=== PATIENT | female | born 1955 | race Caucasian/White ===

== ENCOUNTER 2022-12-16 20:29 | Emergency (ER) | payer MEDICARE, SELFPAY ==
[2022-12-16 20:45] VITALS: BP 142/66; PULSE 76; RESP 18; TEMP 36.7; O2SAT 96; BMI 29.1
--- NOTE | 2022-12-16 20:47 | ED.GENADULT ---
HPI - General Adult General Chief complaint: Fever Stated complaint: sick for a week, was on cruise Time Seen by Provider: 12/16/22 20:47 Source: patient Mode of arrival: Ambulatory Limitations: no limitations History of Present Illness HPI narrative: Patient is a 67-year-old female who is here for evaluation of approximately 1 week of feeling very poorly and also having multiple episodes of diarrhea. This all started shortly after she went on a cruise about a week ago. She was seen by a doctor on the ship. Was given antinausea medication and also antispasm medication. She does describe some generalized abdominal discomfort. She did have a fever but that was several days ago which has resolved. She denies any urinary symptoms. No recent antibiotics. No blood in her stool. Related Data Allergies Allergy/AdvReac Type Severity Reaction Status Date / Time meperidine [From Demerol] Allergy Unknown Verified 12/16/22 20:48 tetracycline AdvReac Intermediate Vomiting Verified 12/16/22 20:48 Review of Systems Constitutional Constitutional: Reports system reviewed and no additional complaints, except as documented Cardiovascular Cardiovascular: Reports system reviewed and no additional complaints, except as documented Respiratory Respiratory: Reports system reviewed and no additional complaints, except as documented Gastrointestinal Gastrointestinal: Reports system reviewed and no additional complaints, except as documented Genitourinary Genitourinary: Reports system reviewed and no additional complaints, except as documented Integumentary/Breasts Skin/Breast: Reports system reviewed and no additional complaints, except as documented Hematologic/Lymphatic On Anticoagulants: No Patient History Social History Smoking Status: Never smoker Exam Initial Vital Signs Initial Vital Signs: Vital Signs Temperature 98.1 F 12/16/22 20:45 Pulse Rate 76 12/16/22 20:45 Respiratory Rate 18 12/16/22 20:45 Blood Pressure 142/66 H 12/16/22 20:45 Pulse Oximetry 96 12/16/22 20:45 Oxygen Delivery Method Room Air 12/16/22 20:45 HENMT Head: normal to inspection Resp Effort & Inspection: normal respiratory effort Auscultation: clear to auscultation bilaterally Cardio Rate: regular rate Rhythm: regular rhythm GI Inspection: normal to inspection and non-distended Palpation: soft and No tender Skin General: no rashes or lesions noted Neuro General: patient alert, patient awake and moves all extremities Extrem General: normal to inspection and capillary refill normal Course Orders Ordered: ED Orders 12/16/22 19:00 Complete Blood Count AUTO DIFF Stat Comprehensive Metabolic Panel Stat Lipase Stat 12/16/22 20:42 Covid-19 + FLU A/B + RSV - PCR Stat Discontinued Medications Sodium Chloride (Normal Saline 0.9%) 1,000 mls @ 1,000 mls/hr IV BOLUS ONE Stop: 12/16/22 21:47 Last Infusion: 12/16/22 22:03 Dose: 0 mls/hr Documented By: Admin: 12/16/22 21:03 Dose: 1,000 mls/hr Documented By: AMU Vital Signs Vital signs: Vital Signs - 8 hr 12/16/22 20:45 Temperature 98.1 F Pulse Rate 76 Respiratory Rate 18 Blood Pressure 142/66 H Pulse Oximetry 96 Oxygen Delivery Method Room Air Medical Decision Making Lab Data 12/16/22 19:00 12/16/22 19:00 Labs: Lab Results 12/16/22 12/16/22 12/16/22 Range/Units 19:00 19:00 20:42 WBC 5.4 (4.5-11.0) X10^3/uL RBC 3.93 L (4.0-5.2) X10^6/uL Hgb 12.0 (12.0-16.0) g/dL Hct 34.1 L (36-46) % MCV 86.7 (80-100) fL MCH 30.5 (26-34) PG MCHC 35.1 (30-36) % RDW 12.6 (11.6-14.8) % Plt Count 166 (150-400) X10^3/uL Neut % (Auto) 57.9 (50-75) % Lymph % (Auto) 30.4 (25-40) % [place] % (Auto) 9.5 (3-14) % Eos % (Auto) 1.8 L (2-4) % Baso % (Auto) 0.4 (0-2) % Neut # (Auto) 3100 (0675-8862) /uL Lymph # (Auto) 1600 (1775-1841) /uL [place] # (Auto) 500 (0-900) /uL Eos # (Auto) 100 (0-450) /uL Baso # (Auto) 0 (0-100) /uL Sodium 138 (137-145) mmol/L Potassium 3.3 L (3.4-5.1) mmol/L Chloride 106 (98-107) mmol/L Carbon Dioxide 25 (22-32) mmol/L BUN 16 (7-17) mg/dL Creatinine 0.87 (0.52-1.04) mg/dL Estimated GFR > 60 (>60) mL/min BUN/Creatinine Ratio 18.4 (6-22) Glucose 97 (80-110) mg/dL Calcium 8.4 (8.4-10.2) mg/dL Total Bilirubin 0.8 (0.2-1.3) mg/dL AST 37 H (14-36) IU/L ALT 94 H (<35) IU/L Alkaline Phosphatase 121 (38-126) U/L Total Protein 6.4 (6.3-8.2) g/dL Albumin 3.3 L (3.5-5.0) g/dL Globulin 3.1 (1.7-4.1) g/dL Albumin/Globulin Ratio 1.1 (1.0-2.8) Lipase 137 (23-300) U/L SARS-CoV-2 (PCR) Negative (Negative) Influenza A (RT-PCR) Flu a negative (NEGATIVE) Influenza B (RT-PCR) Flu b negative (NEGATIVE) RSV (PCR) Negative (Negative) Urine Dip Bedside Urine Glucose Negative Bedside Urine Bilirubin - Negative Bedside Urine Ketone - Negative Urine Specific [place] 1.01 Bedside Urine Occult Blood - Negative Bedside Urine pH 6 Bedside Urine Protein - Negative Bedside Urine Urobilinogen - Negative Bedside Urine Nitrite - Negative Bedside Urine Leukocytes - Negative Esterase Point of care testing: Urine Dip Bedside Urine Glucose Negative Bedside Urine Bilirubin - Negative Bedside Urine Ketone - Negative Urine Specific [place] 1.01 Bedside Urine Occult Blood - Negative Bedside Urine pH 6 Bedside Urine Protein - Negative Bedside Urine Urobilinogen - Negative Bedside Urine Nitrite - Negative Bedside Urine Leukocytes - Negative Esterase MDM Narrative Medical decision making narrative: Labs are unremarkable. Has a benign abdominal exam. Is afebrile. Is tolerating oral intake. Patient unable to give us a stool sample here in the ER. There is no indication for antibiotics. She has nausea medication at home however she states that her nausea has actually improved. She does admit that her loose stools have been improving somewhat over the next couple days. Given her presentation and her exam I do feel that we should hold on any radiologic studies for now. She was given return precautions and follow-up instructions. She expressed understanding and agreement. Discharge Plan Departure Patient Disposition: Home Clinical Impression: Diarrhea Instructions: Diarrhea (Alternative Therapy), Diarrhea Activity Restrictions/Additional Instructions: Is important that you continue to increase your fluid intake like we discussed. I do recommend a bland diet that you can advance as tolerated. Return to the emergency department for new or worsening symptoms. Contact your primary provider for follow-up. Stand Alone Forms: Patient Portal/API
[2022-12-16] MEDS: SODIUM CHLORIDE 0.9% 1,000 ML 1000 ML IV (21:03)
[2022-12-16 21:10] LABS: Add Manual Diff / Slide Review NO; Basophils Absolute Auto 0 /uL (0-100); Basophils Percent Auto 0.4 % (0-2); Eosinophils Absolute Auto 100 /uL (0-450); Eosinophils Percent Auto 1.8 % (2-4); Hematocrit 34.1 % (36-46); Lymphocytes Absolute Auto 1600 /uL (1100-4500); Lymphocytes Percent Auto 30.4 % (25-40); Mean Corpuscular HGB Conc 35.1 % (30-36); Mean Corpuscular Hemoglobin 30.5 PG (26-34); Mean Corpuscular Volume 86.7 fL (80-100); Monocytes Absolute Auto 500 /uL (0-900); Monocytes Percent Auto 9.5 % (3-14); Neutrophils Absolute Auto 3100 /uL (1500-7000); Neutrophils Percent Auto 57.9 % (50-75); Platelet Count 166 X10^3/uL (150-400); Red Blood Cell Count 3.93 X10^6/uL (4.0-5.2); Red Cell Distribution Width 12.6 % (11.6-14.8); White Blood Cell Count 5.4 X10^3/uL (4.5-11.0)
[2022-12-16 21:32] LABS: Alanine Aminotransferase 94 IU/L (<35); Albumin 3.3 g/dL (3.5-5.0); Albumin Globulin Ratio 1.1 (1.0-2.8); Alkaline Phosphatase 121 U/L (38-126); Aspartate Aminotransferase 37 IU/L (14-36); BUN Creatinine Ratio 18.4 (6-22); Bilirubin Total 0.8 mg/dL (0.2-1.3); Blood Urea Nitrogen 16 mg/dL (7-17); Calcium 8.4 mg/dL (8.4-10.2); Carbon Dioxide 25 mmol/L (22-32); Chloride 106 mmol/L (98-107); Estimated Glomerular Filt Rate > 60 mL/min (>60); Globulin 3.1 g/dL (1.7-4.1); Glucose 97 mg/dL (80-110); HEMOLYSIS 16 (0-50); Lipase 137 U/L (23-300); Potassium 3.3 mmol/L (3.4-5.1); Sodium 138 mmol/L (137-145); Total Protein 6.4 g/dL (6.3-8.2)
[2022-12-16 21:48] LABS: Influenza A - CEPHEID Flu A NEGATIVE (NEGATIVE); Influenza B - CEPHEID Flu B NEGATIVE (NEGATIVE); Respiratory Syncytial Virus Negative (Negative)
[2022-12-16 21:57] LABS: COVID-19 CEPHEID 4-PLEX PCR Negative (Negative)
== END 2022-12-16 22:35 | disposition home or self-care (01) ==
PROVIDERS: Emergency Provider Emergency Medicine
DX: R19.7 Diarrhea, unspecified (principal); Z20.822 Contact with and (suspected) exposure to COVID-19
CPT/HCPCS: 0241U; 36415; 80053; 81003; 83690; 85025; 96360; 99284